=== PATIENT | female | born 2000 | race African-American/Black ===

== ENCOUNTER 2021-07-30 17:14 | Emergency (ER) | payer MEDICAID ==
[~2021-07-30] VITALS: Ht 160 cm; Wt 48.0 kg
[2021-07-30] MEDS ORDERED: VALA100044 MT (23:01)
[2021-07-30 23:09] VITALS: BP 122/81
== END 2021-07-30 23:18 | disposition home or self-care (01) ==
LOC: ER 17:14
DX: S00.501A Unspecified superficial injury of lip, initial encounter (principal); X58.XXXA Exposure to other specified factors, initial encounter; Y93.89 Activity, other specified; Y92.89 Other specified places as the place of occurrence of the external cause
CPT/HCPCS: 99283